=== PATIENT | female | born 1935 | race Native Hawaiian/Other Pacific Islander ===

== ENCOUNTER 2016-11-25 13:47 | Outpatient (CLI) | payer OTHER, BC | END 2016-11-25 15:00 | disposition home or self-care (01) | LOC: MAMMO 13:47 | DX: Z12.31 Encounter for screening mammogram for malignant neoplasm of breast (principal) | CPT/HCPCS: G0202-TC ==

== ENCOUNTER 2017-01-31 17:54 | Outpatient (CLI) | payer OTHER, BC | END 2017-01-31 19:00 | disposition home or self-care (01) | LOC: LAB 17:54 | DX: N39.0 Urinary tract infection, site not specified (principal); R30.0 Dysuria | CPT/HCPCS: 81000; 87077; 87086; 87088; 87186 ==

== ENCOUNTER 2017-02-06 12:55 | Outpatient (CLI) | payer OTHER, BC | END 2017-02-06 14:00 | disposition home or self-care (01) | LOC: RAD 12:55 | DX: M54.5 Low back pain (principal) ==

== ENCOUNTER 2018-01-16 09:12 | Outpatient (CLI) | payer OTHER, BC | END 2018-01-16 19:43 | disposition home or self-care (01) | LOC: MAMMO 09:12 | DX: Z12.31 Encounter for screening mammogram for malignant neoplasm of breast (principal) ==

== ENCOUNTER 2019-02-12 11:23 | Outpatient (CLI) | payer OTHER, BC | END 2019-02-12 21:51 | disposition home or self-care (01) | LOC: MAMMO 11:23 | DX: Z12.31 Encounter for screening mammogram for malignant neoplasm of breast (principal) ==

== ENCOUNTER 2019-08-27 09:45 | Outpatient (CLI) | payer OTHER, BC | END 2019-08-27 20:12 | disposition home or self-care (01) | LOC: US 09:45 | DX: N18.2 Chronic kidney disease, stage 2 (mild) (principal) ==

== ENCOUNTER 2019-12-20 16:03 | Outpatient (CLI) | payer OTHER, BC | END 2019-12-20 21:51 | disposition home or self-care (01) | LOC: LAB 16:03 | DX: R19.7 Diarrhea, unspecified (principal) | CPT/HCPCS: 82272; 83630; 87015; 87045; 87324; 87328; 87329; 87449; 87899 ==

== ENCOUNTER 2020-09-27 17:52 | Emergency (ER) | payer OTHER, BC ==
[~2020-09-27] VITALS: Ht 154.9 cm; Wt 55.8 kg
[2020-09-27 18:03] VITALS: BP 129/69; TEMP 97.8
== END 2020-09-27 19:23 | disposition home or self-care (01) ==
LOC: ED 17:52
PROC: 0HQDXZZ Repair Right Lower Arm Skin, External Approach (ICD-10-PCS; principal; 2020-09-27)
DX: S51.011A Laceration without foreign body of right elbow, initial encounter (principal); W01.198A Fall on same level from slipping, tripping and stumbling with subsequent striking against other object, initial encounter; Y92.89 Other specified places as the place of occurrence of the external cause
CPT/HCPCS: 99282

== ENCOUNTER 2020-10-09 10:29 | Outpatient (CLI) | payer OTHER, BC | END 2020-10-09 19:32 | disposition home or self-care (01) | LOC: RAD 10:29 | PROVIDERS: ATTEND Physician Assistant | DX: M54.2 Cervicalgia (principal); M25.512 Pain in left shoulder ==

== ENCOUNTER 2021-07-11 16:58 | Outpatient (CLI) | payer OTHER, BC | END 2021-07-11 19:05 | disposition home or self-care (01) | LOC: LAB 16:58 | PROVIDERS: ATTEND Nurse Practitioner Family | DX: R19.7 Diarrhea, unspecified (principal); R10.84 Generalized abdominal pain | CPT/HCPCS: 82272; 83630; 87015; 87045; 87324; 87328; 87329; 87449; 87899 ==

== ENCOUNTER 2021-08-03 04:28 | Emergency (ER) | payer OTHER, BC ==
[~2021-08-03] VITALS: Ht 154.9 cm; Wt 55.8 kg
[2021-08-03 04:41] VITALS: TEMP 98.9
[2021-08-03 05:03] LABS: PLATELET COUNT 159 K/uL (152-353)
[2021-08-03 09:06] VITALS: BP 112/74
== END 2021-08-03 09:06 | disposition home or self-care (01) ==
LOC: ED 04:28
PROVIDERS: Emergency Medicine
DX: N18.2 Chronic kidney disease, stage 2 (mild) (principal); K52.89 Other specified noninfective gastroenteritis and colitis; Z20.822 Contact with and (suspected) exposure to COVID-19
CPT/HCPCS: 80053; 81000; 85027; 87635; 96360; 96374; 99284; J2405; U0003

== ENCOUNTER 2021-09-06 10:36 | Outpatient (CLI) | payer OTHER, BC | END 2021-09-06 20:00 | disposition home or self-care (01) | LOC: US 10:36 | PROVIDERS: ATTEND Internal Medicine | DX: R42 Dizziness and giddiness (principal) ==

== ENCOUNTER 2021-10-04 11:26 | Outpatient (CLI) | payer OTHER, BC ==
[2021-10-04 11:52] LABS: PLATELET COUNT 169 K/uL (152-353)
[2021-10-04 13:07] LABS: POTASSIUM 4.7 mmol/L (3.6-5.2)
== END 2021-10-04 19:11 | disposition home or self-care (01) ==
LOC: LABW 11:26
PROVIDERS: ATTEND Internal Medicine Nephrology
DX: N18.2 Chronic kidney disease, stage 2 (mild) (principal); Z79.899 Other long term (current) drug therapy
CPT/HCPCS: 36415; 80069; 81000; 82570; 84156; 85027; 87088

== ENCOUNTER 2022-03-28 09:25 | Outpatient (CLI) | payer OTHER, BC ==
[2022-03-28 10:15] LABS: PLATELET COUNT 176 K/uL (152-353)
[2022-03-28 10:40] LABS: POTASSIUM 4.4 mmol/L (3.6-5.2)
== END 2022-03-28 19:39 | disposition home or self-care (01) ==
LOC: LABW 09:25
PROVIDERS: ATTEND Internal Medicine Nephrology
DX: P19.9 Metabolic acidemia in newborn, unspecified (principal)
CPT/HCPCS: 36415; 80069; 81002; 82570; 84156; 85027

== ENCOUNTER 2022-08-29 12:22 | Outpatient (CLI) | payer OTHER, BC ==
[2022-08-29 13:18] LABS: PLATELET COUNT 168 K/uL (152-353)
[2022-08-29 13:36] LABS: POTASSIUM 4.3 mmol/L (3.6-5.2)
== END 2022-08-29 19:36 | disposition home or self-care (01) ==
LOC: LABW 12:22
PROVIDERS: ATTEND Internal Medicine Nephrology
DX: N18.2 Chronic kidney disease, stage 2 (mild) (principal)
CPT/HCPCS: 36415; 80069; 81002; 82570; 84156; 85027

== ENCOUNTER 2022-10-30 14:26 | Outpatient (CLI) | payer OTHER, BC ==
[2022-10-30 14:43] LABS: PLATELET COUNT 190 K/uL (152-353)
== END 2022-10-30 20:44 | disposition home or self-care (01) ==
LOC: LABW 14:26
PROVIDERS: ATTEND Internal Medicine Gastroenterology
DX: K50.10 Crohn's disease of large intestine without complications (principal)
CPT/HCPCS: 36415; 85027; 85652; 86140

== ENCOUNTER 2022-12-26 15:55 | Outpatient (CLI) | payer OTHER, BC | END 2022-12-26 19:26 | disposition home or self-care (01) | LOC: RAD 15:55 | PROVIDERS: ATTEND Nurse Practitioner Family | DX: Z01.818 Encounter for other preprocedural examination (principal) ==